=== PATIENT | male | born 1945 | race American Indian/Alaskan Native ===

== ENCOUNTER 2017-02-14 08:00 | Inpatient (IN) | payer MEDICARE ==
--- NOTE | 2017-02-15 14:27 | Admit Criteria Form ---
Admission Criteria Documentation: AMBULATORY SURGERY EXCEPTION CRITERIA Ambulatory Surgery Exception Criteria ( Place 'X' for any and all applicable criteria): Surgery or procedure performed on ambulatory basis may require inpatient stay for[A] ANY ONE of the following(1)(2)(3)(4)(5)(6)(7)(8)(9): [X] I. A preoperative situation, condition, or finding that warrants inpatient stay as indicated by ANY ONE of the following: [] a) Inpatient care needed because of severity of a disease or condition rather than the surgery (eg, severe cardiac or respiratory disease, severe infection) (15) (16 ) (17) (18) [] b) Emergent procedure (eg, angioplasty for acute ischemia)(19) [] c) Complex surgical approach or situation as indicated by ANY ONE of the following(3): [] i) Open approach needed instead of usual endoscopic, transcatheter, or other less invasive procedure [] ii) Difficult approach because of previous operation [] iii) Airway monitoring required after open neck procedures(20)(21) [] iv) Large mass requiring unusually extensive dissection [] v) Additional complicating feature requiring inpatient care (eg, drain management)(22(23): [X] d) Major surgery in a pt with high anesthetic risk as indicated by ANY ONE of the following (2)(3)(5)(7)(8): [X] i) ASA risk class III or higher (severe systemic disease impairing function) [D] [] ii) Advanced age (eg, older than 85 years)(14)(24) [] iii) Symptomatic heart failure(25) [] iv) Symptomatic asthma or COPD(8)(21) [] v) Morbid obesity with hemodynamic or respiratory problems(20)( 21)(26)(27) [] vi) Obstructive sleep apnea(20)(21) [] vii) Former premature infants who are younger than 60 weeks [] viii) High risk for severe postoperative abnormalities (eg, severe postoperative hypocalcemia after parathyroidectomy for severe hyperparathyroidism)(27)( 28) [] ix) Unstable angina(25) [] e) Drug-related risk requiring inpatient stay as indicated by ANY ONE of the following(5)(10)(14)(32)(33) [] i) Procedure requires discontinuing drugs or other therapy (eg , antiarrhythmic medication, antiseizure medication), which necessitates inpatient observation or treatment.(18)(31) [] ii) Major surgery and high risk drug use as indicated by ANY ONE of the following: [] 1) Active abuse of cocaine or similar drug [] 2) Monoamine oxidase inhibitor use [] 3) Other drug identified as posing risk [] f) Inadequate outpatient care situation as indicated by ANY ONE of the following(5)(10)(14)(32)(33) [] i) Patient lives remote from medical facility and procedure has urgent complication potential, and temporary nearby residence cannot be arranged [] ii) Patient will have postprocedure incapacitation and inadequate assistance at home, or alternative level of care cannot be arranged. [] iii) Patient will have long general anesthesia or procedure side effect resolution time, and competent person to stay with patient on first postoperative night at home or alternative level of care cannot be arranged. []iv) Other inadequate outpatient situation that cannot be handled by other means [] II. A perioperative event, condition, or finding that warrants inpatient stay as indicated by ANY ONE of the following (1)(2)(3): [] a) Inadequate physiologic recovery: cardiovascular, respiratory, or hemodynamic status not normal or near preoperative baseline(18) [] b) Hemodynamic instability [] c) Patient not alert with near normal or baseline mental status [] d) Temperature not normal or as expected and not appropriate for outpatient treatment of condition [] e) Ambulatory or appropriate activity level status not yet achieved post procedure [E](34)(35)(36) [] f) Operative site not appropriate (eg, unexpected or excessive drainage or bleeding) [] g) Postoperative effects not resolved or adequately managed (eg, significant pain or vomiting not appropriate for outpatient or next level of care)(10)(12) [] h) Complicating features requiring inpatient care as indicated by ANY ONE of the following(37): [] i) Severe complications of procedure (eg, bowel injury, airway compromise, vascular injury,severe hemorrhage) [] ii) Extensive (eg, dissection far beyond usual scope of procedure ) or prolonged (eg, 120 minutes beyond usual) surgery needed requiring inpatient postoperative care [] iii) Conversion to an open or complex procedure that requires inpatient care (eg, open vs laparoscopic cholecystectomy, abdominal vs vaginal hysterectomy)(38) [] iv) Comorbid condition or test result identified during or post procedure that requires inpatient care (7) [] v) Malignant hyperthermia(30) [] vi) Other complicating feature requiring inpatient care(22)(23) Inpatient stay may be needed until ALL of the following are present (1)(2)(3)(4) (5)(6)(10)(14)(33)(40): []a) Physiologic recovery: cardiovascular, respiratory, and hemodynamic status normal or near preoperative baseline []b) Hemodynamic stability []c) Patient alert, with near normal or baseline mental status []d) Temperature appropriate: patient afebrile or temperature appropriate for outpt treatment of condition []e) Activity level appropriate: ambulatory or appropriate activity level post procedure []f) Operative site appropriate as indicated by ALL of the following: []i) Site dry or with expected drainage []ii) Any blood noted is as expected for procedure. []g) Postoperative effects resolved or managed as indicated by ALL of the following: []i) Pain management appropriate for outpatient (or next level of) care(10) []ii) Minimal nausea and vomiting: if present, successfully treated with oral medication(12) []iii) Headache, dizziness, or drowsiness (if present) are mild. []h) Voiding status acceptable as indicated by ANY ONE of the following: []i) Voiding spontaneously []ii) No voiding but instructions given for follow-up in 6 to 8 hours []iii) Urinary catheter in place, and instructions given for follow-up []i) Complicating features requiring inpatient care manageable at a lower level of care(37) []j) Comorbid conditions manageable at a lower level of care(37) The original [employer] content created by [employer] has been revised. The portions of the content which have been revised are identified through the use of italic text or in bold, and [email or web address] has neither reviewed nor approved the modified material. All other unmodified content is copyright [employer]. Please see references footnoted in the original [employer] edition 2016 Admission Criteria Met: Yes
[2017-02-21 09:37] LABS: Basophils % (Auto) 0.5 % (0.0-1.8); Eosinophils % (Auto) 3.5 % (0.0-4.3); Hematocrit 40.1 % (35.5-45.6); Hemoglobin 13.3 gm/dl (11.8-15.2); Mean Corpuscular HGB Conc 33 % (32-34); Mean Corpuscular Hemoglobin 28 pg (28-32); Mean Corpuscular Volume 85 fl (84-94); Platelet Count 288 K/mm3 (140-440); Red Blood Count 4.74 M/mm3 (3.65-5.03); Red Cell Distribution Width 14.6 % (13.2-15.2)
--- NOTE | 2017-02-21 09:54 | Anesthesia Consultation ---
Anesthesia Consult and Med Hx Date of service: 02/21/17 - Airway Anesthetic Teeth Evaluation: Poor (very poor teeth/multiple missing/chipped/ broken) ROM Head & Neck: Adequate Mental/Hyoid Distance: Adequate Mallampati Class: Class II Intubation Access Assessment: Probably Good - Pulmonary Exam CTA: Yes (blbs clear) - Cardiac Exam Cardiac Exam: RRR - Pre-Operative Health Status ASA Pre-Surgery Classification: ASA3 Proposed Anesthetic Plan: General - Pulmonary Hx Sleep Apnea: Yes - Cardiovascular System Hx Hypertension: Yes (X 4 YRS) - Central Nervous System Hx Neuromuscular Disorder: Yes (s/p knee scope) - Additional Comments Anesthesia Medical History Comments: prostate cancer
[2017-02-21] MEDS ORDERED: VERSED IV NR (10:00)
[2017-02-21] MEDS ORDERED: PEPCID IV NR (10:00)
[2017-02-21 10:02] LABS: Alanine Aminotransferase 9 units/L (7-56); Albumin/Globulin Ratio 1.1 %; Alkaline Phosphatase 43 units/L (35-129); Anion Gap 16 mmol/L; BUN/Creatinine Ratio 10.76; Blood Urea Nitrogen 14 mg/dL (9-20); Calcium 9.3 mg/dL (8.4-10.2); Carbon Dioxide 25 mmol/L (22-30); Chloride 102.7 mmol/L (98-107); Glucose 112 mg/dL (75-100); Potassium 3.8 mmol/L (3.6-5.0); Sodium 140 mmol/L (137-145); Total Protein 7.6 g/dL (6.3-8.2)
[2017-02-21 10:10] LABS: INR 1.01 (0.87-1.13)
[2017-02-21 10:11] LABS: Partial Thromboplastin Time 26.4 Sec. (24.2-36.6)
--- NOTE | 2017-02-25 13:25 | Short Stay Summary ---
Short Stay Documentation Date of service: 02/28/17 Narrative H&P: 71 yr old male CONSULT FROM DR. JUNE / CHOL - HTN( PSA DONE AT [facility]) NON SMOKER / NO FAMILY HX / NO FAMILY CANCER HX / NO SURGERY IN PAST PSA 8.6 () / DEVAN 7 (11-30-16 ) 02/18 CORES BILAT/ -CTAP NORMAL OPTIONS: robotic surgery, radiation, cryotherapy, hormone therapy, HIFU, observation DECIPHER - PT WANTS ROBOTIC PROSTATECTOMY--DVD GIVEN - History Past Medical History: hypertension, hyperlipidemia Past Surgical History: No surgical history Social history: - Allergies and Medications Current Medications: Allergies No Known Allergies Allergy (Verified 02/11/17 09:39) Home Medications Medication Instructions Recorded Confirmed Last Taken Type Aspirin [Adult Low Dose Aspirin EC] 81 mg PO DAILY 02/11/17 02/11/17 Unknown History Hydrochlorothiazide [HCTZ] 25 mg PO QDAY 02/21/17 02/21/17 Unknown History Lisinopril [Zestril] 40 mg PO DAILY 02/21/17 02/21/17 Unknown History Rosuvastatin Calcium 20 mg PO DAILY 02/21/17 02/21/17 Unknown History Active Medications Cefazolin Sodium (Ancef/Sterile Water 2 Gm/20 Ml) 2 gm IV PREOP NR Stop: 02/28/17 23:59 Sodium Chloride (Nacl 0.9% 1000 Ml) 1,000 mls @ 100 mls/hr IV DIRECT MILVIA - Physical exam General appearance: no acute distress, well-nourished Integumentary: no rash, no growths, no abnormal pigmentation Lungs: Clear to auscultation, Normal air movement Breasts: deferred Heart: Regular rate, No murmurs Gastrointestinal: normal Male Genitourinary: normal Rectal Exam: normal rectal tone Extremities: no ischemia, No edema - Brief post op/procedure progress note Date of procedure: 02/28/17 Pre-op diagnosis: prostate cancer Post-op diagnosis: same Procedure: robotic prostatectomy Anesthesia: EVANSA Surgeon: KISHORE SIERRA Client Reporting Associate: KASANDRA SEGAL Estimated blood loss: other (300cc) Pathology: list Specimen disposition: to lab (prostate) Condition: stable - Hospital course Hospital course: norco,cipro, & post op info on chart looks good shin removed home with cota - Disposition Condition at discharge: Stable Disposition: DISCHARGED TO HOME OR SELFCARE Short Stay Discharge Plan Follow up with: PRIMARY CARE, [Primary Care Provider] - 7 Days
[2017-02-28] MEDS ORDERED: ANCEF/STERILE WATER 2 GM/20 ML IV NR (06:00)
[2017-02-28] MEDS ORDERED: NEOSTIGMINE ONE ×2 (07:16→08:00)
[2017-02-28] MEDS ORDERED: ZEMURON IV ONE (07:16)
[2017-02-28] MEDS ORDERED: DIPRIVAN 10 MG/ML IV ONE (07:26)
[2017-02-28] MEDS ORDERED: XYLOCAINE MPF 2% ONE (07:28)
[2017-02-28] MEDS ORDERED: DILAUDID ONE (07:28)
[2017-02-28] MEDS: NACL 0.9% 1000 ML 1,000 ML IV SCH (07:30)
--- NOTE | 2017-02-28 07:40 | Anesthesia Day of Surgery ---
Anesthesia Day of Surgery - Day of Surgery Patient Examined: Yes Patient H&P Reviewed: Yes Patient is NPO: Yes
[2017-02-28] MEDS ORDERED: SUBLIMAZE ONE (07:51)
[2017-02-28] MEDS ORDERED: CLONIDINE 1,000 MCG/10 ML VIAL EP ONE (07:52)
[2017-02-28] MEDS ORDERED: CALCIUM CHLORIDE IV ONE (07:53)
[2017-02-28] MEDS ORDERED: ACD-A 500 ML IV ONE (07:53)
[2017-02-28] MEDS ORDERED: METHYLENE BLUE ONE (07:54)
[2017-02-28] MEDS ORDERED: THROMBIN (BOVINE) TP ONE (07:54)
[2017-02-28] MEDS ORDERED: XYLOCAINE 1% 20 mL INFILTRATI NR (08:00)
[2017-02-28] MEDS ORDERED: MARCAINE-EPI 0.5%-1:200,000 INFILTRATI NR ×2 (08:00)
[2017-02-28] MEDS ORDERED: VERSED IV NR (08:00)
[2017-02-28] MEDS ORDERED: PEPCID PO NR (08:00)
[2017-02-28] MEDS ORDERED: DECADRON IV NR (08:00)
[2017-02-28] MEDS ORDERED: NEURONTIN PO NR (08:00)
[2017-02-28] MEDS ORDERED: ePHEDrine SULFATE ONE (08:46)
[2017-02-28] MEDS ORDERED: NACL 0.9% 1000 ML 1,000 ML ONE ×2 (08:56→10:31)
[2017-02-28] MEDS ORDERED: NACL 0.9% IR ONE (09:03)
[2017-02-28] MEDS ORDERED: WATER FOR IRRIG STERILE IR ONE (09:03)
[2017-02-28] MEDS ORDERED: ACD-A IV ONE (09:03)
[2017-02-28] MEDS ORDERED: ROBINUL ONE (10:04)
[2017-02-28] MEDS ORDERED: NORCO 5/325 PO PRN (11:15)
[2017-02-28] MEDS ORDERED: MORPHINE IV PRN (11:15)
[2017-02-28] MEDS ORDERED: AMBIEN PO PRN (11:15)
[2017-02-28] MEDS ORDERED: NARCAN 0.4 MG/1 ML IV PRN (11:15)
[2017-02-28] MEDS ORDERED: ZOFRAN IV PRN (11:15)
[2017-02-28] MEDS ORDERED: NACL 0.9% 1000 ML 1,000 ML IV SCH (12:00)
[2017-02-28] MEDS ORDERED: ANCEF/NS 1 GM/50 ML 1 GM/50 ML BAG IV SCH (12:00)
[2017-02-28] MEDS: DILAUDID IV PRN ×2 (12:30→12:53)
--- NOTE | 2017-02-28 13:33 | Post Anesthesia Evaluation ---
- Post Anesthesia Evaluation Patient Participated: Yes Airway Patent: Yes Stable Respiratory Function: Yes Temp > 96.8F: Yes Pain Manageable: Yes Adequeate Hydration: Yes Anesthesia Complications: No Block Receding Appropriately: Not Applicable
--- NOTE | 2017-02-28 13:36 | Operative Report ---
PREOPERATIVE DIAGNOSES: Prostate cancer, Keith 7. POSTOPERATIVE DIAGNOSES: Prostate cancer, Licking 7. SECONDARY DIAGNOSES: Hypertension, hyperlipidemia. PROCEDURE: Robotic-assisted laparoscopic prostatectomy. SURGEON: Rahul Harris MD ANESTHESIA: General. ANESTHESIOLOGIST: Dr. Seda Rodrigues. FALL INTERN: Maxx Alberts. ESTIMATED BLOOD LOSS: 300 mL. FLUIDS: Crystalloid 125 of Cell Saver. COMPLICATIONS: No complications. INDICATIONS: This 71-year-old gentleman referred by Dr. Santo for a second opinion after evaluation of a PSA of 8.6. He underwent transrectal ultrasound biopsy of his prostate by Dr. Santo. 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 was normal. Risks, benefits, and complications were explained. The patient agreed to proceed with robotic prostatectomy. DESCRIPTION OF PROCEDURE: The patient was taken to the operative suite, placed in a supine position. After adequate general anesthesia, he was then placed in a modified dorsal lithotomy position, prepped and draped in a sterile fashion. Cornejo catheter was placed on the field. Maxx Alberts was the surgical garment assembler. He was present for the entire case to assist with bedside dissection. Towel clips were placed. 1 cm supraumbilical incision was made. Using the advanced applied medical trocar and insufflation and direct visualization was used for placement of the P port, no intra-abdominal injury could be appreciated. No signs of metastasis were noted. Insufflation to 15 cm of water was noted. A 15 cm cephalad to pubic symphysis was marked in the midline, 9 cm lateral, and an additional 9 cm lateral was used for 8 mm robotic ports. A helper port was placed on the right side as well as a 10 mm and 5 mm port. The patient was then placed in exaggerated Trendelenburg. The robotic cart was docked between the legs and 0 degree lens was used, bipolar trung in the #1 and #2 ports. Second arch was identified. It was scored. Dissection was taken to the apex of the prostate. Seminal vesicles and vas deferens were dissected out. Seminal vesicles and vas deferens was transected bilaterally. Next, attention was taken to the anterior abdominal wall. It is also noted the patient had a small left inguinal hernia, reducible, lateral to the lateral umbilical ligament was scored and then across the midline bladder flap was dropped. The endopelvic fascia was opened bilaterally exposing the dorsal vein complex. This was controlled with a 45 mm vascular stapler. Manipulation of the Cornejo was performed. Anterior bladder neck was scored. Cornejo catheter was deflated. Anterior traction was used to facilitate the dissection of the posterior bladder neck. Fairview stitch in the bladder side of the bladder neck was placed with a 2-0 Vicryl. Prostate was dissected posteriorly exposing the seminal vesicles and vas deferens, which was pulled anteriorly exposing the lateral pedicles. These were controlled again with a 45 mm vascular stapler. Dissection to the apex of the prostate was performed. It was removed and placed in the EndoCatch bag. Adequate hemostasis was achieved. The bladder neck reconstruction was performed at the 5 o'clock and 7 o'clock positions using 2-0 Vicryl in interrupted fashion to accommodate an 18 Slovenian Cornejo catheter. Double armed V-Loc stitch was placed at the 6 o'clock position of the bladder neck corresponding aspect of the urethra, running stitch was performed bilaterally. Bladder neck was brought down to the urethra. A new 18-Slovenian Cornejo catheter was placed. Anastomotic stitch was cinched down, 15 mL of water in the Cornejo balloon. The bladder was irrigated with 60 mL saline, no leak. The V-Loc stitch was also placed at the pubic symphysis to aid in continence. Copious irrigation was performed. Adequate hemostasis achieved. John-Salguero drain was brought out through a left-sided robotic port. The trocars were removed, robot undocked. Prostate was transferred to the supraumbilical incision, which was extended to allow removal. Rectus fascia was closed with #1 Vicryl in a [id number] fashion. John-Salguero drain was tied in the position with 2-0 silk. Subcutaneous tissue was closed with 4-0 Monocryl in an interrupted fashion and Dermabond. The side port was tied over and closed with 0 silk in an interrupted fashion. The patient tolerated the procedure, was extubated and taken to recovery room. He will be observed overnight and go home on Cipro and [place]. JOB# [id number] [facility]MARAH
[2017-03-01] MEDS: NACL 0.9% 1000 ML 1,000 ML IV SCH
[2017-03-01 04:13] LABS: Basophils % (Auto) 0.1 % (0.0-1.8); Hematocrit 34.6 % (35.5-45.6); Mean Corpuscular HGB Conc 32 % (32-34); Mean Corpuscular Hemoglobin 27 pg (28-32); Mean Corpuscular Volume 85 fl (84-94); Platelet Count 239 K/mm3 (140-440); Red Blood Count 4.07 M/mm3 (3.65-5.03); Red Cell Distribution Width 14.4 % (13.2-15.2); White Blood Count 7.6 K/mm3 (4.5-11.0)
[2017-03-01 04:25] LABS: Anion Gap 19 mmol/L; BUN/Creatinine Ratio 13.33; Blood Urea Nitrogen 16 mg/dL (9-20); Calcium 7.7 mg/dL (8.4-10.2); Carbon Dioxide 19 mmol/L (22-30); Chloride 105.1 mmol/L (98-107); Glucose 135 mg/dL (75-100); Potassium 4.1 mmol/L (3.6-5.0); Sodium 139 mmol/L (137-145)
[2017-03-01] MEDS ORDERED: ANCEF/NS 1 GM/50 ML 1 GM/50 ML BAG IV SCH (06:00)
[2017-03-01 07:40] VITALS: BP 113/72
--- NOTE | 2017-03-01 07:56 | Consultation ---
History of Present Illness - Reason for Consult Consult date: 03/01/17 Medical management Requesting physician: KISHORE SIERRA - History of Present Illness S/p Robotic prostate surgery - Doing well..No complications Past History Past Medical History: hypertension, hyperlipidemia Past Surgical History: No surgical history, TURP (Robotic prostate surgery) Social history: Medications and Allergies Allergies Allergy/AdvReac Type Severity Reaction Status Date / Time No Known Allergies Allergy Verified 02/11/17 09:39 Home Medications Medication Instructions Recorded Confirmed Last Taken Type Aspirin [Adult Low Dose Aspirin EC] 81 mg PO DAILY 02/11/17 02/28/17 02/20/17 History Hydrochlorothiazide [HCTZ] 25 mg PO QDAY 02/21/17 02/28/17 02/27/17 08:00 History 25MG Lisinopril [Zestril] 40 mg PO DAILY 02/21/17 02/28/17 02/28/17 05:30 History 40MG Rosuvastatin Calcium 20 mg PO DAILY 02/21/17 02/28/17 02/27/17 18:30 History 20MG Active Meds: Active Medications Acetaminophen/Hydrocodone Bitart (Sunset 5/325) 2 each PO Q4H PRN PRN Reason: Pain, Moderate (4-6) Atorvastatin Calcium (Lipitor) 40 mg PO QHS MILVIA Last Admin: 02/28/17 22:08 Dose: 40 mg Hydrochlorothiazide (Hctz) 25 mg PO QDAY [facility] Sodium Chloride (Nacl 0.9% 1000 Ml) 1,000 mls @ 100 mls/hr IV DIRECT [facility] Last Admin: 03/01/17 00:00 Dose: 100 mls/hr Sodium Chloride (Nacl 0.9% 1000 Ml) 1,000 mls @ 100 mls/hr IV DIRECT MILVIA Lisinopril (Zestril) 40 mg PO DAILY [facility] Morphine Sulfate (Morphine) 4 mg IV Q4H PRN PRN Reason: Pain , Severe (7-10) Naloxone HCl (Narcan 0.4 Mg/1 Ml) 0.1 mg IV Q2MIN PRN PRN Reason: Res Rate </= 8 or 02 SAT < 92% Ondansetron HCl (Zofran) 4 mg IV Q8H PRN PRN Reason: Nausea And Vomiting Zolpidem Tartrate (Ambien) 5 mg PO QHS PRN PRN Reason: Sleep Review of Systems All systems: negative Constitutional: no weight loss, no weight gain Ears, nose, mouth and throat: no ear pain, no ear discharge, no tinnitis, no decreased hearing, no nose pain, no nasal congestion, no nasal discharge, no sinus pressure, no sinus pain Cardiovascular: no chest pain, no orthopnea, no palpitations, no rapid/ irregular heart beat, no edema, no syncope, no lightheadedness, no shortness of breath Respiratory: no cough, no cough with sputum, no excessive sputum, no hemoptysis , no shortness of breath, no dyspnea on exertion Gastrointestinal: no abdominal pain, no nausea, no vomiting, no diarrhea, no constipation, no change in bowel habits, no hematemesis, no coffee ground emesis Genitourinary Male: urinary frequency, no hematuria Musculoskeletal: no neck stiffness, no neck pain, no shooting arm pain, no arm numbness/tingling, no low back pain, no shooting leg pain, no leg numbness/ tingling, no redness of joints Integumentary: no rash, no pruritis, no redness, no sores, no wounds, no jaundice, no boils, no blisters Neurological: no head injury, no transient paralysis, no paralysis, no weakness , no parathesias, no numbness, no tingling, no seizures, no syncope, no tremors , no ataxia, no lack of coordination Psychiatric: no anxiety, no memory loss, no sleep disturbances, no insomnia, no hypersomnia, no change in appetite, no change in libido Endocrine: no cold intolerance, no heat intolerance, no polyphagia, no excessive thirst, no polydipsia, no polyuria, no nocturia, no excessive sweating , no flushing, no weight change Hematologic/Lymphatic: no easy bruising, no easy bleeding Allergic/Immunologic: no urticaria, no allergic rhinitis, no wheezing Exam - Constitutional Vitals: Temp Pulse Resp BP Pulse Ox 97.5 F L 62 18 113/72 98 03/01/17 07:00 03/01/17 07:00 03/01/17 07:00 03/01/17 07:00 03/01/17 07:00 General appearance: Present: no acute distress, well-nourished - EENT Eyes: Present: PERRL ENT: hearing intact, clear oral mucosa - Neck Neck: Present: supple, normal ROM - Respiratory Respiratory effort: normal Respiratory: bilateral: CTA - Cardiovascular Heart Sounds: Present: S1 & S2. Absent: rub, click - Extremities Extremities: pulses symmetrical, No edema Peripheral Pulses: within normal limits - Abdominal General gastrointestinal: Present: soft, non-tender, non-distended, normal bowel sounds Male genitourinary: Present: normal - Integumentary Integumentary: Present: clear, warm, dry - Musculoskeletal Musculoskeletal: gait normal, strength equal bilaterally - Psychiatric Psychiatric: appropriate mood/affect, intact judgment & insight - Neurologic Neurologic: CNII-XII intact, moves all extremities Results - Labs CBC & Chem 7: 03/01/17 03:29 03/01/17 03:29 Labs: Abnormal lab results 03/01/17 03/01/17 Range/Units 03:29 03:29 Hgb 11.0 L (11.8-15.2) gm/dl Hct 34.6 L (35.5-45.6) % MCH 27 L (28-32) pg Lymph % (Auto) 11.6 L (13.4-35.0) % Edmunds % (Auto) 9.8 H (0.0-7.3) % Lymph # 0.9 L (1.2-5.4) K/mm3 Seg Neutrophils % 78.5 H (40.0-70.0) % Carbon Dioxide 19 L (22-30) mmol/L Glucose 135 H (75-100) mg/dL Calcium 7.7 L (8.4-10.2) mg/dL Assessment and Plan - Patient Problems (1) HTN (hypertension) Current Visit: Yes Status: Chronic Qualifiers: Hypertension type: essential hypertension Qualified Code(s): I10 - Essential (primary) hypertension Plan to address problem: Cont Lisinopril 40 mg po qd and Hctz 25 mg po qd (2) HLD (hyperlipidemia) Current Visit: Yes Status: Chronic Qualifiers: Hyperlipidemia type: mixed hyperlipidemia Qualified Code(s): E78.2 - Mixed hyperlipidemia Plan to address problem: Cont Crestor po qd (3) SARAH (obstructive sleep apnea) Current Visit: Yes Status: Chronic Plan to address problem: CPAP as necessary (4) Pain management Current Visit: Yes Status: Acute Plan to address problem: Dilaudid 1mg q3 prn (5) DVT prophylaxis Current Visit: Yes Status: Acute Plan to address problem: SCD's
[2017-03-01] MEDS ORDERED: NON-FORMULARY (Rosuvastatin Calcium [Rosuvastatin Calcium] 20 MG) PO SCH (10:00)
[2017-03-01] MEDS ORDERED: HCTZ PO SCH (10:00)
[2017-03-01] MEDS ORDERED: ZESTRIL PO SCH (10:00)
== END 2017-03-01 13:46 | disposition home health service (06) | DRG 708 ==
LOC: 3A 02-28 06:02 → EDSTATUS 02-28 08:00 → 2B-SURG 02-28 11:32
PROVIDERS: ADMIT Urology; ATTEND Urology
PROC: 0VT04ZZ Resection of Prostate, Percutaneous Endoscopic Approach (ICD-10-PCS; principal; 2017-02-28)
PROC: 8E0W4CZ Robotic Assisted Procedure of Trunk Region, Percutaneous Endoscopic Approach (ICD-10-PCS; 2017-02-28)
DX: C61 Malignant neoplasm of prostate (principal); I10 Essential (primary) hypertension; G47.33 Obstructive sleep apnea (adult) (pediatric); E78.2 Mixed hyperlipidemia
CPT/HCPCS: 36415; 64450; 80048; 80053; 85025; 85610; 85730; 86850; 86900; 86901; 88305; 88309; A4217; A9270-GY; J0690; J0735; J1100; J1170; J2250; J2704; J2710; J3010; J7030; Q9968

== ENCOUNTER 2021-01-25 18:28 | Emergency (ER) | payer MEDICARE ==
[2021-01-25 22:05] LABS: Basophils % (Auto) 0.4 % (0.0-1.8); Eosinophils % (Auto) 0.4 % (0.0-4.3); Hematocrit 33.9 % (35.5-45.6); Hemoglobin 11.2 gm/dl (11.8-15.2); Lymphocytes # (Auto) 1.9 K/mm3 (1.2-5.4); Lymphocytes % (Auto) 20.3 % (13.4-35.0); Mean Corpuscular HGB Conc 33 % (32-34); Mean Corpuscular Volume 81 fl (84-94); Monocytes # (Auto) 0.6 K/mm3 (0.0-0.8); Platelet Count 480 K/mm3 (140-440); Red Blood Count 4.21 M/mm3 (3.65-5.03); Red Cell Distribution Width 17.3 % (13.2-15.2)
--- NOTE | 2021-01-25 22:19 | XRay Report ---
CHEST 2 VIEWS INDICATION / CLINICAL INFORMATION: left flank pain. COMPARISON: None available. FINDINGS: SUPPORT DEVICES: None. HEART / MEDIASTINUM: No significant abnormality. LUNGS / PLEURA: No significant pulmonary or pleural abnormality. No pneumothorax. ADDITIONAL FINDINGS: No significant additional findings. IMPRESSION: No acute cardiopulmonary abnormality. Signer Name: Marvin Solares MD Signed: 01/25/2021 10:15 PM Workstation Name: [email or web address]
[2021-01-25 22:27] LABS: Albumin 3.9 g/dL (3.9-5); Calcium 9.7 mg/dL (8.4-10.2)
[2021-01-25] MEDS ORDERED: KETOROLAC 30 MG/1 ML INJ IM ONE (23:23)
--- NOTE | 2021-01-25 23:27 | Emergency Department Report ---
HPI - General Chief Complaint: Back Pain/Injury Time Seen by Provider: 01/25/21 23:16 - HPI HPI: This is a 75-year-old -[place] male who presents to the emergency department with complaint of pain to the left posterior lateral lower rib cage that has been going on since yesterday. Patient says that he slept on the sofa 2 nights ago and woke up with the symptoms. He denies any shortness of breath, problems with bowel or bladder, numbness or paresthesias. He has not taken anything for symptoms prior to presentation. During my examination, while seated and at rest, the patient does not have any pain. He says that the pain occurs when he is standing up from seated or when he is leaning forward. He has a past medical history of hypertension and hyperlipidemia. No recent travel or sick contacts at home. ED Past Medical Hx - Past Medical History Hx Hypertension: Yes - Social History Smoking Status: Never Smoker - Medications Home Medications: Home Medications Medication Instructions Recorded Confirmed Last Taken Type Aspirin [Adult Low Dose Aspirin EC] 81 mg PO DAILY 02/11/17 02/28/17 02/20/17 History Lisinopril [Zestril] 40 mg PO DAILY 02/21/17 02/28/17 02/28/17 05:30 History 40 MG Rosuvastatin Calcium 20 mg PO DAILY 02/21/17 02/28/17 02/27/17 18:30 History 20 MG hydroCHLOROthiazide [HCTZ] 25 mg PO QDAY 02/21/17 02/28/17 02/27/17 08:00 History 25 MG Ibuprofen [Motrin 600 MG tab] 600 mg PO Q8H PRN #15 tablet 01/26/21 Unknown Rx ED Review of Systems ROS: Stated complaint: LT SIDE PAIN Other details as noted in HPI Comment: All other systems reviewed and negative Constitutional: denies: chills, fever Eyes: denies: eye pain, vision change ENT: denies: ear pain, throat pain Respiratory: denies: cough, shortness of breath Cardiovascular: denies: palpitations, edema Gastrointestinal: denies: abdominal pain, vomiting Genitourinary: denies: dysuria, discharge Musculoskeletal: back pain (Left posterior lateral rib cage, almost at the left costovertebral angle) Skin: denies: rash, lesions Neurological: denies: headache, weakness, numbness, paresthesias Physical Exam - Physical Exam Vital Signs: Vital Signs 01/25/21 20:00 Temperature 98.5 F Pulse Rate 77 Respiratory 18 Rate Blood Pressure 126/75 O2 Sat by Pulse 95 Oximetry Physical Exam: GENERAL: The patient is well-developed well-nourished. HENT: Normocephalic. Atraumatic. Patient has moist mucous membranes. EYES: Extraocular motions are intact. NECK: Supple. Trachea is midline. CHEST/LUNGS: Clear to auscultation. There is no respiratory distress noted. HEART/CARDIOVASCULAR: Regular. There is no tachycardia. There is no murmur. ABDOMEN: Abdomen is soft, nontender. Patient has normal bowel sounds. SKIN: Skin is warm and dry. NEURO: The patient is awake, alert, and oriented. The patient is cooperative. The patient has no focal neurologic deficits. Normal speech. MUSCULOSKELETAL: There is no tenderness or deformity. There is no limitation range of motion. Unable to reproduce the rib pain to palpation. BACK: No midline thoracic or lumbar tenderness to palpation. No CVA tenderness to palpation. ED Course Vital Signs 01/25/21 20:00 Temperature 98.5 F Pulse Rate 77 Respiratory 18 Rate Blood Pressure 126/75 O2 Sat by Pulse 95 Oximetry ED Medical Decision Making - Lab Data Result diagrams: 01/25/21 21:49 01/25/21 21:49 - Radiology Data Radiology results: image reviewed interpreted by me: Chest x-ray does not show any acute process. There are no pleural effusions, obvious pneumonia and there is no pneumothorax. No significant cardiomegaly. - Medical Decision Making This patient presents with a 1 to 2-day history of some pain to the left posterior lateral rib cage that has been going on since he slept on a sofa yesterday morning. The patient has no pain while at rest. He only appears to have any pain with bending forward or going from sitting to standing. The skin does not show any shingles, skin color change, rash or lesions. Chest x-ray did not show any pneumonia, pleural effusions, focal consolidation, pneumothorax, or any other acute process. His vital signs have been reassuring throughout his ED course. Labs are unremarkable including CBC and metabolic panel. The patient's symptoms appear more consistent with something musculoskeletal versus some atypical chest pain or cardiac event. Patient was given a shot of Toradol and upon reevaluation says he is feeling improved. He says that he has good outpatient follow-up with primary care and has been instructed to see his PCP in the next few days. He has also been given an outpatient referral for an ort hopedist. He will return to the emergency department with any worsening of his symptoms or with any acute distress. Critical Care Time: No Critical care attestation.: If time is entered above; I have spent that time in minutes in the direct care of this critically ill patient, excluding procedure time. ED Disposition Clinical Impression: Rib pain on left side Back pain Qualifiers: Back pain location: back pain in unspecified location Chronicity: unspecified Back pain laterality: left Qualified Code(s): M54.9 - Dorsalgia, unspecified Disposition: TO HOME OR SELFCARE Is pt being admited?: No Condition: Stable Instructions: Acute Back Pain, Adult, Musculoskeletal Pain Additional Instructions: Please follow-up with your primary care physician in the next few days. I am giving you a referral for a local orthopedist, Dr. Maldonado. You have been prescribed a medication that is sedating and therefore should not be taken prior to driving, working, and responsible for children and in no way should be mixed with alcohol of any quantity. Return to the emergency department with any worsening of your symptoms, new or concerning symptoms not addressed during this current emergency department visit, or with any acute distress. Prescriptions: Ibuprofen [Motrin 600 MG tab] 600 mg PO Q8H PRN #15 tablet PRN Reason: Pain Referrals: PRIMARY MD GINGER [Referring] - 3-5 Days KATRINA MALDONADO MD [Staff Physician] - 3-5 Days Time of Disposition: 01:16
[2021-01-26 01:24] VITALS: BP 149/81
[2021-01-26 02:47] LABS: Bilirubin,Urine NEG (Negative); Blood,Urine NEG (Negative); Color,Urine Yellow (Yellow); Mucus,Urine 1+ /HPF; Protein,Urine <15 mg/dL mg/dL (Negative); Urobilinogen,Urine < 2.0 mg/dL (<2.0)
== END 2021-01-26 01:22 | disposition home or self-care (01) ==
LOC: ED 18:28
DX: R07.81 Pleurodynia (principal); M54.6 Pain in thoracic spine; I10 Essential (primary) hypertension; Z79.1 Long term (current) use of non-steroidal anti-inflammatories (NSAID); Z79.899 Other long term (current) drug therapy
CPT/HCPCS: 36415; 71046; 80053; 81001; 85025; 87086; 96372; 99284; J1885